=== PATIENT | female | born 1985 | race Caucasian/White ===

== ENCOUNTER 2022-01-24 19:46 | Emergency (ER) | payer OTHER ==
--- NOTE | 2022-01-24 20:14 | ED Physician Documentation ---
History of Present Illness - Stated complaint Stated Complaint: TROUBLE BREATHING - Chief complaint Chief Complaint: Allergic Rx - History obtained from History obtained from: Patient, Family (spouse) - Additonal information Additional information: 36yF with pmh disc herniation, daily MJ user, daily cigarillo smoker, nkda p/w sudden onset intermittent soa about 35 min [employer] accompanied by tightness in chest radiating to throat. patient smoked a joint then was having a cigarillo outdoors when she began to experience symptoms. intermittent "haziness" a/w soa and cp. recently had covid 1 wk ago, self limited with no hospitalization. Note her was concerned she was having an allergic reaction and gave her 50mg benadryl just [employer]. patient has no prior hx allergies. denies rash, pruritus, nausea. No personal or FH clots. denies leg swelling, recent surgery, travel, fever, cough. Review of Systems Ten Systems: 10 systems reviewed and negative Constitutional: denies: Fever, Chills Cardiac: reports: Chest pain / pressure, Palpitations Respiratory: reports: Dyspnea. denies: Cough GI: denies: Nausea PD PAST MEDICAL HISTORY - Allergies Allergies/Adverse Reactions: Allergies Allergy/AdvReac Type Severity Reaction Status Date / Time No Known Drug Allergies Allergy Verified 01/24/22 19:52 PD ED PE NORMAL - Vitals Vital signs reviewed: Yes - General General: Alert and oriented X 3, No acute distress, Well developed/nourished - HEENT HEENT: Atraumatic, PERRL, EOMI - Neck Neck: Supple, no meningeal sign - Cardiac Cardiac: RRR - Respiratory Respiratory: No respiratory distress, Clear bilaterally - Abdomen Abdomen: Non tender, Non distended - Derm Derm: Normal color, Warm and dry - Neuro Neuro: Alert and oriented X 3, No motor deficit, No sensory deficit - Psych Psych: Other (anxious affect) Results - Vitals Vitals: Vital Signs - 24 hr 01/24/22 01/24/22 01/24/22 19:52 20:20 20:30 Temperature 36.5 C Heart Rate 115 H 78 70 Respiratory 32 H 18 22 Rate Blood Pressure 129/72 128/69 109/56 L O2 Saturation 100 100 99 Oxygen O2 Source Room air - EKG (time done) 2018 Rate: Rate (enter#) (75) Rhythm: NSR Intervals: Normal LA QRS: Normal Ischemia: Normal ST segments Compare to prior EKG: Old EKG unavailable - Labs Labs: Laboratory Tests 01/24/22 01/24/22 20:04 20:04 WBC 9.7 RBC 4.04 L Hgb 12.1 Hct 35.2 L MCV 87.1 MCH 30.0 MCHC 34.4 RDW 12.2 Plt Count 262 MPV 10.4 Neut # (Auto) 5.5 Lymph # (Auto) 3.4 [place] # (Auto) 0.6 Eos # (Auto) 0.2 Baso # (Auto) 0.1 Absolute Nucleated RBC 0.00 Nucleated RBC % 0.0 Sodium 135 Potassium 3.0 L Chloride 103 Carbon Dioxide 21 Anion Gap 11.0 BUN 10 Creatinine 1.0 Estimated GFR (MDRD) 62 L Glucose 192 H Calcium 9.0 Total Bilirubin 0.8 AST 20 ALT 18 Alkaline Phosphatase 38 L Total Protein 6.8 Albumin 4.1 Globulin 2.7 Albumin/Globulin Ratio 1.5 Lipase 32 PD MEDICAL DECISION MAKING - ED course ED course: Well-appearing 36-year-old woman presents with sudden onset shortness of breath and chest and throat tightness after smoking marijuana and then a cigarillo outdoors. Patient visibly tearful and describing "haziness" upon arrival, appearing reassured upon my history and exam. Physical exam was unremarkable and she is now comfortable appearing. PE less likely given no risk factors and not fitting the constellation of symptoms however she did recently have covid, known to predispose to clots therefore we will obtain dimer for screening. Departure - Departure Clinical Impression: Shortness of breath, Chest pain Condition: Good Instructions: ED Dyspnea Shortness of Breath Comments: You were seen in the emergency department for evaluation of chest tightness and shortness of breath. Your tests including blood work, chest x-ray, and EKG uncovered no emergent issues. Please plan to follow-up with your primary doctor in regards to your symptoms. Consider avoiding smoking and using edibles for management of your back pain, especially in the post-covid period while your lungs recover from recent illness.
[2022-01-24 20:18] LABS: BASOPHILS # (AUTO) 0.1 10^3/uL (0.0-0.1); BASOPHILS % (AUTO) 0.6 %; EOSINOPHILS # (AUTO) 0.2 10^3/uL (0.0-0.7); EOSINOPHILS % (AUTO) 1.9 %; HCT - HEMATOCRIT 35.2 % (37.0-47.0); HGB - HEMOGLOBIN 12.1 g/dL (12.0-16.0); LYMPHOCYTES # (AUTO) 3.4 10^3/uL (1.5-3.5); LYMPHOCYTES % (AUTO) 35.2 %; MEAN CORPUSCULAR HGB CONC 34.4 g/dL (32.0-36.0); MEAN CORPUSCULAR VOLUME 87.1 fL (81.0-99.0); MEAN PLATELET VOLUME 10.4 fL (7.9-10.8); MONOCYTES # (AUTO) 0.6 10^3/uL (0.0-1.0); MONOCYTES % (AUTO) 5.7 %; NEUTROPHILS # (AUTO) 5.5 10^3/uL (1.5-6.6); NEUTROPHILS % (AUTO) 56.5 %; PLT - PLATELET COUNT 262 10^3/uL (130-450); RED BLOOD COUNT 4.04 10^6/uL (4.20-5.40); RED CELL DISTRIBUTION WIDTH 12.2 % (12.0-15.0); WHITE BLOOD COUNT 9.7 x10^3/uL (4.8-10.8)
[2022-01-24 20:32] LABS: ALBUMIN 4.1 g/dL (3.2-5.5); ALBUMIN/GLOBULIN RATIO 1.5 (1.0-2.2); BILIRUBIN,TOTAL 0.8 mg/dL (0.2-1.0); TOTAL PROTEIN 6.8 g/dL (6.7-8.2)
--- NOTE | 2022-01-24 21:08 | XRAY Report ---
PROCEDURE: Chest 2 View X-Ray INDICATIONS: shortness of breath TECHNIQUE: 2 views of the chest. COMPARISON: None. FINDINGS: Surgical changes and devices: None. Lungs and pleura: No pleural effusions or pneumothorax. Lungs are clear. Mediastinum: Mediastinal contours are normal. Heart size is normal. Bones and chest wall: No suspicious bony abnormalities. Soft tissues appear unremarkable. IMPRESSION: 1. No acute cardiopulmonary disease. Reviewed by: Júnior Buck MD on 01/24/2022 9:07 PM PDT Approved by: Júnior Buck MD on 01/24/2022 9:07 PM PDT Station ID: [id number]
[2022-01-24 21:53] VITALS: BP 121/63
== END 2022-01-24 21:52 | disposition home or self-care (01) ==
LOC: ED 19:46
DX: R06.02 Shortness of breath (principal); R07.89 Other chest pain
CPT/HCPCS: 36415; 80053; 83690; 85025; 85379; 93005; 99284

== ENCOUNTER 2022-03-23 16:42 | Outpatient (CLI) | payer OTHER ==
--- NOTE | 2022-03-23 17:12 | XRAY Report ---
PROCEDURE: Knee 4 View RT INDICATIONS: PAIN IN RIGHT KNEE TECHNIQUE: 4 views of the right knee(s) were acquired. COMPARISON: None. FINDINGS: Bones: No fractures or dislocations. No suspicious bony lesions. There is some mild tricompartmental osteoarthritic type degenerative change with some small marginal osteophytes. Soft tissues: No joint effusion. No suspicious soft tissue calcifications. IMPRESSION: Mild tricompartmental osteoarthritic type degenerative change. Reviewed by: Jairo Blake MD on 03/23/2022 5:11 PM PST Approved by: Jairo Blake MD on 03/23/2022 5:11 PM PST Station ID: [id number]
== END 2022-03-23 16:43 | disposition home or self-care (01) ==
LOC: DI.S 16:42
PROVIDERS: ATTEND Registered Nurse
DX: M17.11 Unilateral primary osteoarthritis, right knee (principal)